=== PATIENT | male | born 1965 ===

== ENCOUNTER 2024-12-06 07:09 | Day surgery (SDC) | payer OTHER ==
[~2024-12-06] VITALS: Ht 167.6 cm; Wt 100.3 kg
[~2024-12-06 07:09] MED LIST: AMLO5 PO; ATORVASTATIN CA40 M1 PO; CELEXA40 M1 PO; CYCL10 PO; HYDACE5 PO; LEVSOD88 PO; LOSA50 PO; Lactated Ringer's 1,000 ML IV ONE; Lactated Ringer's 1,000 ML IV SCH; OMEPRAZOLE MAGN20 MG PO
[2024-12-06 07:40] VITALS: BP 152/82
[2024-12-06] MEDS ORDERED: propofoL 20 ML IV ONE ×2 (08:12→08:13)
--- NOTE | 2024-12-06 08:21 | NUR ---
12/06/24 0821 Meenakshi James 0813- History, Chart, Medications and Allergies reviewed before start of procedure.MONITOR INTACT WITH CONTINUOUS PULSE OXIMETRY, CONTINUOUS END TITAL CO2, AND INTERMITTENT BLOOD PRESSURE.3-LEAD EKG REVIEWED WITH PHYSICIAN PRIOR TO START OF PROCEDURE.O2 VIA POM INTACT THROUGHOUT SEDATION/PROCEDURE.DR. MCKEON PROVIDING MAC-SEE ANESTHESIA RECORD.
[2024-12-06 08:39] VITALS: BP 127/82
--- NOTE | 2024-12-06 08:40 | NUR ---
REPORT RECEIVED FROM MARILU DIEGO. VSS. PT ON RA. PT ABLE TO REPOSITION SELF IN BED. PT REQUESTING PO FLUIDS AND TOLERATING THEM WELL. PT DENIES PAIN, NAUSEA OR OTHER DISCOMFORTS.
[2024-12-06 08:49] VITALS: BP 126/85
== END 2024-12-06 09:01 | disposition home or self-care (01) ==
LOC: ORSCMMR 07:09 → ORD 08:00 → ORSCMMR 09:01
PROVIDERS: Internal Medicine Gastroenterology
PROC: 0DBM8ZX Excision of Descending Colon, Via Natural or Artificial Opening Endoscopic, Diagnostic (ICD-10-PCS; principal; 2024-12-06 08:00)
DX: Z12.11 Encounter for screening for malignant neoplasm of colon (principal); D12.4 Benign neoplasm of descending colon; I10 Essential (primary) hypertension; E78.00 Pure hypercholesterolemia, unspecified; E03.9 Hypothyroidism, unspecified; F32.A Depression, unspecified; E66.9 Obesity, unspecified; Z68.35 Body mass index [BMI] 35.0-35.9, adult; K21.9 Gastro-esophageal reflux disease without esophagitis; G47.33 Obstructive sleep apnea (adult) (pediatric); Z79.899 Other long term (current) drug therapy
CPT/HCPCS: 88305; J2704; J7120